=== PATIENT | female | born 1990 | race Two or more races ===

== ENCOUNTER 2024-07-30 14:11 | Outpatient (CLI) ==
[~2024-07-30] VITALS: Ht 147.3 cm; Wt 86.1 kg
[2024-07-30] MEDS ORDERED: HOME MED LIST COMPLETE! XX SCH (14:35)
[2024-07-30] MEDS ORDERED: PRENTAB9 PO (14:35)
[2024-07-30 14:37] VITALS: BP 132/79
[2024-07-30 15:08] VITALS: O2SAT 97
[2024-07-30 15:13] VITALS: O2SAT 97
[2024-07-30 15:46] VITALS: BP 122/76
== END 2024-07-30 16:09 | disposition home or self-care (01) ==
LOC: M LDO 14:11
PROVIDERS: ATTEND Obstetrics & Gynecology
DX: O36.8130 Decreased fetal movements, third trimester, not applicable or unspecified (principal); O34.219 Maternal care for unspecified type scar from previous cesarean delivery; Z3A.28 28 weeks gestation of pregnancy
CPT/HCPCS: 59025; G0463

== ENCOUNTER 2024-09-14 16:25 | Outpatient (CLI) | payer OTHER ==
[~2024-09-14] VITALS: Ht 149.9 cm; Wt 88.5 kg
[~2024-09-14 16:25] MED LIST: PRENTAB9 PO
[2024-09-14 16:44] VITALS: BP 129/79
[2024-09-14] MEDS ORDERED: HOME MED LIST COMPLETE! XX SCH (16:50)
[2024-09-14] MEDS: LR 1,000 ML IV ONE (17:59)
[2024-09-14 18:10] LABS: HEMATOCRIT 38.8 % (36.0-47.0); HEMOGLOBIN 13.4 g/dl (12.0-15.5); MEAN CORPUSCULAR HEMOGLOBIN 30.8 pg (27.0-33.0); MEAN CORPUSCULAR HGB CONC 34.5 g/dl (32.0-36.5); MEAN CORPUSCULAR VOLUME 89.2 fl (80.0-96.0); PLATELET COUNT, AUTOMATED 206 10^3/uL (150-450); RED BLOOD COUNT 4.35 10^6/uL (4.00-5.40); WHITE BLOOD COUNT 10.5 10^3/uL (4.0-10.0)
[2024-09-14 18:39] LABS: LIPASE 35 U/L (12-53)
[2024-09-14 18:42] LABS: ALBUMIN 2.6 G/DL (3.2-5.2); ALKALINE PHOSPHATASE 100 U/L (35-104); ALT/SGPT 21 U/L (7.0-40); AST/SGOT 16 U/L (<34); BLOOD UREA NITROGEN < 5 MG/DL (9-23); CALCIUM LEVEL 8.7 MG/DL (8.5-10.1); CARBON DIOXIDE LEVEL 21 MMOL/L (20-31); CHLORIDE LEVEL 108 MMOL/L (98-107); CREATININE FOR GFR 0.51 MG/DL (0.55-1.30); GLOMERULAR FILTRATION RATE > 60.0 (>60); GLUCOSE, FASTING 81 MG/DL (60-100); POTASSIUM SERUM 3.8 MMOL/L (3.5-5.1); SODIUM LEVEL 141 MMOL/L (136-145)
[2024-09-14] MEDS: BETAMETHASONE SOLUSPAN 6MG/ML 5ML VIAL IM ONE (18:56)
[2024-09-14] MEDS: LR 1,000 ML IV SCH (18:57)
[2024-09-14 19:31] VITALS: BP 109/81
== END 2024-09-14 22:16 | disposition home or self-care (01) ==
LOC: M LDO 16:25
PROVIDERS: ATTEND Specialist
DX: O47.03 False labor before 37 completed weeks of gestation, third trimester (principal); O34.219 Maternal care for unspecified type scar from previous cesarean delivery; O09.293 Supervision of pregnancy with other poor reproductive or obstetric history, third trimester; O09.813 Supervision of pregnancy resulting from assisted reproductive technology, third trimester; Z3A.35 35 weeks gestation of pregnancy
CPT/HCPCS: 59025; 76815; 76820; 80053; 83690; 85027; G0463; J0702

== ENCOUNTER 2024-09-15 19:16 | Outpatient (CLI) | payer OTHER ==
[~2024-09-15] VITALS: Ht 149.9 cm; Wt 89.0 kg
[2024-09-15 19:30] VITALS: BP 131/88; O2SAT 99
[2024-09-15] MEDS ORDERED: HOME MED LIST COMPLETE! XX SCH (19:35)
[2024-09-15 20:05] VITALS: BP 129/82
[2024-09-15] MEDS: BETAMETHASONE SOLUSPAN 6MG/ML 5ML VIAL IM ONE (20:07)
== END 2024-09-15 20:11 | disposition home or self-care (01) ==
LOC: M LDO 19:16
PROVIDERS: ATTEND Obstetrics & Gynecology
DX: O47.03 False labor before 37 completed weeks of gestation, third trimester (principal); O09.813 Supervision of pregnancy resulting from assisted reproductive technology, third trimester; O09.293 Supervision of pregnancy with other poor reproductive or obstetric history, third trimester; O34.211 Maternal care for low transverse scar from previous cesarean delivery; Z3A.35 35 weeks gestation of pregnancy
CPT/HCPCS: 59025; 96372; G0463; J0702

== ENCOUNTER 2024-09-16 21:46 | Outpatient (CLI) | payer OTHER ==
[~2024-09-16] VITALS: Ht 149.9 cm; Wt 89.5 kg
[2024-09-16 22:09] VITALS: BP 102/57
== END 2024-09-16 22:59 | disposition home or self-care (01) ==
LOC: M LDO 21:46
PROVIDERS: ATTEND Advanced Practice Midwife
DX: O36.8130 Decreased fetal movements, third trimester, not applicable or unspecified (principal); O34.211 Maternal care for low transverse scar from previous cesarean delivery; O09.293 Supervision of pregnancy with other poor reproductive or obstetric history, third trimester; O31.23X1 Continuing pregnancy after intrauterine death of one fetus or more, third trimester, fetus 1; O09.813 Supervision of pregnancy resulting from assisted reproductive technology, third trimester; Z3A.35 35 weeks gestation of pregnancy
CPT/HCPCS: 59025; G0463

== ENCOUNTER → 2024-09-17 | Outpatient (REF) | payer OTHER | LOC: M PLALAB 11:14 | PROVIDERS: ATTEND Obstetrics & Gynecology | DX: O34.211 Maternal care for low transverse scar from previous cesarean delivery (principal) ==

== ENCOUNTER → 2024-09-17 | Outpatient (REF) | payer OTHER | LOC: M SFHCWAGY 16:54 | PROVIDERS: ATTEND Obstetrics & Gynecology | DX: O34.211 Maternal care for low transverse scar from previous cesarean delivery (principal) ==

== ENCOUNTER 2024-10-10 05:12 | Inpatient (IN) | payer OTHER ==
[~2024-10-10] VITALS: Ht 147.3 cm; Wt 94.0 kg
[2024-10-10] VITALS (9 sets, daily range): BP systolic 116–127; BP diastolic 61–85; TEMP 98.2; O2SAT 96–99
[2024-10-10] MEDS: LACTATED RINGER'S 1000 ML IV STA (05:22)
[2024-10-10] MEDS: ceFAZolin SODIUM 2 GM in DEXTROSE 5% (D5W) ADV/MINI-BAG 50 ML IV ONE (05:25)
[2024-10-10] MEDS ORDERED: HOME MED LIST COMPLETE! XX SCH (06:10)
[2024-10-10 06:15] LABS: HEMATOCRIT 37.8 % (36.0-47.0); MEAN CORPUSCULAR HEMOGLOBIN 30.6 pg (27.0-33.0); MEAN CORPUSCULAR HGB CONC 34.4 g/dl (32.0-36.5); MEAN CORPUSCULAR VOLUME 88.9 fl (80.0-96.0); PLATELET COUNT, AUTOMATED 183 10^3/uL (150-450); RED BLOOD COUNT 4.25 10^6/uL (4.00-5.40); WHITE BLOOD COUNT 9.2 10^3/uL (4.0-10.0)
[2024-10-10 07:10] LABS: HIV 1&2 SCREEN NEGATIVE (NEGATIVE)
[2024-10-10 07:17] LABS: HEPATITIS C VIRUS ABY INDEX 0.02 INDEX (<0.8)
[2024-10-10] MEDS: LR 1,000 ML IV SCH (07:33)
[2024-10-10] MEDS: BICITRA 30ML SOLN UDC PO ONE (07:47)
[2024-10-10] MEDS ORDERED: MORPHINE PRES-FREE INJ 10 MG/10 ML VIAL As Ordered ONE (08:03)
[2024-10-10] MEDS ORDERED: KETOROLAC 30 MG/ML 1ML VIAL As Ordered ONE (08:28)
[2024-10-10] MEDS ORDERED: ONDANSETRON 4MG 2ML VIAL As Ordered ONE (08:28)
[2024-10-10] MEDS ORDERED: ACETAMINOPHEN 1000MG/100ML IV BAG As Ordered ONE (08:28)
[2024-10-10] MEDS ORDERED: fentaNYL 100 MCG/2 ML INJECTION As Ordered ONE (08:47)
[2024-10-10] MEDS ORDERED: LIDOCAINE 2% W/EPINEPHRINE 20ML VIAL **PRES FREE As Ordered ONE (08:50)
[2024-10-10 09:01] LABS: CORD GAS ABE V -3.2; CORD GAS HCO3 V 23.3 MMOL/L; CORD GAS O2 SAT V 50.2 %; CORD GAS PCO2 V 46.7 mmHg; CORD GAS PH V 7.315 UNITS; CORD GAS PO2 V 22.1 mmHg; CORD GAS SBC V 20.7 MMOL/L; CORD GAS TCO2 V 24.7 MMOL/L
[2024-10-10 09:03] LABS: CORD GAS ABE A -2.1; CORD GAS HCO3 A 26.1 MMOL/L; CORD GAS O2 SAT A 36.2 %; CORD GAS PH A 7.264 UNITS; CORD GAS PO2 A 17.3 mmHg; CORD GAS SBC A 21.3 MMOL/L; CORD GAS TCO2 A 27.9 MMOL/L
[2024-10-10] MEDS ORDERED: propofoL 200 MG/20 ML VIAL As Ordered ONE (09:03)
[2024-10-10] MEDS ORDERED: RHOGAM 300MCG (1500IU) INJ IM SCH (09:30)
[2024-10-10] MEDS ORDERED: MORPHINE 4 MG/ML 1ML VIAL IV PRN (09:30)
[2024-10-10] MEDS ORDERED: METHYLERGONOVINE MALEATE 0.2 MG TAB PO PRN (09:30)
[2024-10-10] MEDS ORDERED: ANUSOL HC CREAM 30GM TOP PRN (09:30)
[2024-10-10] MEDS ORDERED: SIMETHICONE 80MG CHEW TAB PO PRN (09:30)
[2024-10-10] MEDS ORDERED: LR 1,000 ML IV SCH (09:30)
[2024-10-10] MEDS ORDERED: ePHEDrine SULFATE 25 MG/5 ML(5MG/ML) SYRINGE As Ordered ONE (09:31)
[2024-10-10] MEDS ORDERED: PHENYLephrine 500MCG 5ML (100MCG/ML) SYRINGE As Ordered ONE (09:31)
[2024-10-10] MEDS ORDERED: PERCOCET PO (09:38)
[2024-10-10] MEDS ORDERED: IBUP80TA PO (09:38)
[2024-10-10] MEDS ORDERED: COLA100C5 PO (09:38)
[2024-10-10] MEDS: OXYTOCIN DRIP 30 UNITS in IV 1 EA IV SCH (10:20)
[2024-10-10] MEDS: KETOROLAC 30 MG/ML 1ML VIAL IV SCH (15:15)
[2024-10-10] MEDS: DOCUSATE SODIUM 100MG CAPSULE PO SCH (20:53)
[2024-10-11] VITALS (7 sets, daily range): BP systolic 99–125; BP diastolic 58–77; O2SAT 97–100
[2024-10-11 05:54] LABS: HEMATOCRIT 30.5 % (36.0-47.0); MEAN CORPUSCULAR HEMOGLOBIN 31.8 pg (27.0-33.0); MEAN CORPUSCULAR HGB CONC 35.7 g/dl (32.0-36.5); MEAN CORPUSCULAR VOLUME 88.9 fl (80.0-96.0); PLATELET COUNT, AUTOMATED 146 10^3/uL (150-450); RED BLOOD COUNT 3.43 10^6/uL (4.00-5.40); WHITE BLOOD COUNT 15.7 10^3/uL (4.0-10.0)
[2024-10-11 05:55] LABS: HEMOGLOBIN 10.9 g/dl (12.0-15.5)
[2024-10-11] MEDS: PRENATAL VITAMINS CHEWABLE TABLET PO SCH (08:45)
[2024-10-11] MEDS: IBUPROFEN 800 MG TAB PO SCH (11:20)
[2024-10-11] MEDS: ACETAMINOPHEN 500 MG TAB PO PRN (17:02)
[2024-10-11] MEDS: PERCOCET 5MG/325MG TAB PO PRN (20:31)
[2024-10-12] MEDS: PERCOCET 5MG/325MG TAB PO PRN (00:28)
[2024-10-12 02:00] VITALS: BP 124/61; O2SAT 97
[2024-10-12 06:00] VITALS: BP 127/84; O2SAT 100
[2024-10-12] MEDS: MEASLES,MUMPS,RUBELLA VACCINE INJ (MMR-II) SC.IMMUN ONE (09:00)
== END 2024-10-12 13:10 | disposition home or self-care (01) | DRG 773 ==
LOC: M LDI 05:12 → M OBS 11:06
PROVIDERS: ADMIT Obstetrics & Gynecology; ATTEND Obstetrics & Gynecology
PROC: 10D00Z1 Extraction of Products of Conception, Low, Open Approach (ICD-10-PCS; principal; 2024-10-10 07:30)
DX: O34.211 Maternal care for low transverse scar from previous cesarean delivery (principal); Z3A.39 39 weeks gestation of pregnancy; Z37.0 Single live birth; O24.420 Gestational diabetes mellitus in childbirth, diet controlled

== ENCOUNTER → 2025-04-30 | Outpatient (REF) | payer OTHER ==
[~2025-04-30] MED LIST changes: +COLA100C5 PO; +IBUP80TA PO; +PERCOCET PO
[2025-05-02 12:48] LABS: HPV APTIMA Not Detected (Not Detected)
== END ==
LOC: M SFHCWAGY 15:20
PROVIDERS: ATTEND Obstetrics & Gynecology
DX: Z12.4 Encounter for screening for malignant neoplasm of cervix (principal)